=== PATIENT | male | born 2000 | race Caucasian/White ===

== ENCOUNTER 2023-05-30 12:44 | Outpatient (REF) | payer SELFPAY ==
[2023-05-30 16:08] LABS: HCT 42.3 % (40.0-50.0); HGB 15.2 g/dL (13.5-17.5); MCH 30.4 pg (27.0-33.0); MCHC 35.9 % (32.0-36.0); MCV 85 fL (80-95); MPV 10.1 fL (8.0-11.0); Platelet Count 405 10^3/uL (130-400); RDW 11.7 % (11.8-14.1); RDW-SD 35.7 fL; WBC 5.56 10^3/uL (4.4-10.8)
[2023-05-30 16:36] LABS: ALT 24 U/L (16-63); AST 17 U/L (15-37); Albumin 4.2 g/dL (3.4-5.0); Alkaline Phosphatase 89 U/L (46-116); Anion Gap 8.8 mmol/L (3-11); BUN 17 mg/dL (7-18); Bilirubin, Total 0.5 mg/dL (0.2-1.0); CO2 26.2 mmol/L (21.0-32.0); Calcium 9.3 mg/dL (8.5-10.1); Chloride 103 mmol/L (98-107); Estimated GFR 108.46 (mL/min/1.73m2); Glucose 101 mg/dL (74-106); Potassium 3.9 mmol/L (3.5-5.1); Sodium 138 mmol/L (136-145); Total Protein 7.2 g/dL (6.4-8.2)
== END 2023-05-30 12:45 | disposition home or self-care (01) ==
LOC: LBN 12:44
PROVIDERS: Visit Provider Family Medicine
DX: R55 Syncope and collapse (principal)
CPT/HCPCS: 80053; 85027